=== PATIENT | male | born 1980 ===

== ENCOUNTER 2018-09-14 07:49 | Day surgery (SDC) | payer OTHER ==
[2018-09-12 12:07] VITALS: BMI 39.0
[2018-09-14] MEDS ORDERED: Lactated Ringer's 1,000 ML IV ONE (08:30)
--- NOTE | 2018-09-14 08:47 | CP.SDSHP ---
Same Day Surgery H & P - History Proposed Procedure: Left 2nd digit PIPJ arthroplasty Pre-Op Diagnosis: Left 2nd digit fionaertoe - Previous Medical/Surgical History Previous Surgical History: Denies - Allergies Allergies: Allergies codeine Allergy (Intermediate, Verified 12/26/16 08:12) SWELLING - Current Medications Current Medications: Truvada - Physical Exam Vital Signs: Vital Signs 09/14/18 08:15 Temperature 97.8 F Pulse Rate 67 Respiratory 20 Rate Blood Pressure 137/87 O2 Sat by Pulse 96 Oximetry Mental Status: Alert & Oriented x3 Neuro: WNL Heart: WNL Lungs: WNL GI: WNL - Impression Impression: Pt was seen and examined in SDS. Pt NPO status was confirmed. All pre-op testing and clearance in chart. Pt has exhausted all conservative treatment at this time and is opting for surgical intervention. Pt was explained procedure and post-operative course. All pt's questions were answered to satisfaction. No guarantees were made. Pt understands all risks, benefits and complications of procedure. Pt will follow-up with Dr. Mcdonald within 1 week of surgery Pt. Evaluated Today:Candidate for Anesthesia & Procedure: Yes - Date & Time Date: 09/14/18 Time: 08:47 Short Stay Discharge - Short Stay Discharge Admitting Diagnosis/Reason for Visit: M20.42 Disposition: HOME/ ROUTINE Referrals: Yaron Gongora MD [Primary Care Provider] - Additional Instructions (Diet, Activity): -Patient in good/stable condition for discharge home -Pt to resume medications per medical reconciliation -Resume regular diet -Please keep dressing clean, dry, & intact to surgical site -Use plastic bag over bandage for showering -Wear post op shoe at all times when ambulating -Call clinic if you see signs of infection (redness, swelling, malodor) -Please make an appointment to see Dr. Mcdonald in office/clinic within 1 week for post-op check Progress Note/Discharge Note with Instructions: - Patient evaluated bedside in recovery s/p 2nd digit arthroplasty - After surgical procedure patient in NAD - (+) Void, (+) Appetite - Capillary refill time <3s and NVS intact. - Patient denies complaints at this time. - Post operative instructions and plan of care explained to patient at length. - Patient. acknowledges verbal understanding. - Patient stable for DC per podiatric surgery
--- NOTE | 2018-09-14 08:50 | CP.PCM.PN ---
Subjective - Date & Time of Evaluation Date of Evaluation: 09/14/18 Time of Evaluation: 08:47 - Subjective Subjective: SDS Progress Note: Dr. Mcdonald 38 year old male patient, with no PMHx, seen and evaluated in [facility] for L 2nd digit arthroplasty. Patient states that his left 2nd toe has been bothering him for about 2-3 years, especially in tight shoes. Patient reports being NPO since 9pm last night. He states that he has had anesthesia before and denies any adverse reactions. Patient is aware of proposed procedure and post operative course. He denies N/V/F/SOB/CP. PMHx: denies Meds: Truvada ALL: Codeine Objective - Vital Signs/Intake and Output Vital Signs (last 24 hours): Temp Pulse Resp BP Pulse Ox 97.8 F 67 20 137/87 96 09/14/18 08:15 09/14/18 08:15 09/14/18 08:15 09/14/18 08:15 09/14/18 08:15 - Constitutional Appears: Non-toxic, No Acute Distress - Head Exam Head Exam: ATRAUMATIC, NORMOCEPHALIC - Extremities Exam Additional comments: LLE focused exam: Vascular: DP/PT 2/4, CFT < 3 seconds, TG warm to warm, no edema appreciated Ortho: MMT 5/5, tenderness to palpation of L 2nd digit, mildly rigid Hammertoe deformity of L 2nd digit, no pain with calf compression Neuro: Gross and protective sensation intact Derm: Erythema noted to dorsal aspect of 2nd digit. No open lesions, no clinical signs of infection - Neurological Exam Neurological Exam: Alert, Awake, Oriented x3 - Psychiatric Exam Psychiatric exam: Normal Affect, Normal Mood Assessment and Plan - Assessment and Plan (Free Text) Assessment: 38 year old male patient, with no PMHx, seen and evaluated in [facility] for L 2nd digit arthroplasty. Plan: Pt was seen and examined in [facility] Pt NPO status was confirmed All pre-op testing and clearance in chart Pt has exhausted all conservative treatment at this time and is opting for surgical intervention Pt was explained procedure and post-operative course All pt's questions were answered to satisfaction No guarantees were made Pt understands all risks, benefits and complications of procedure Pt will follow-up with Dr. Mcdonald within 1 week of surgery
[2018-09-14] MEDS ORDERED: Bupivacaine 0.25% Inj(30mL) IJ ONE (09:30)
[2018-09-14] MEDS ORDERED: Lidocaine 1% Inj (20ml) IJ ONE (09:30)
[2018-09-14] MEDS ORDERED: Lidocaine 1% Inj (20ml) ONE (10:58)
[2018-09-14] MEDS ORDERED: Bupivacaine HCl 0.5% PF (30 ml) Inj ONE (10:58)
[2018-09-14] MEDS ORDERED: ceFAZolin 1 GM in Sodium Chloride 0.9% 100 ML IVPB ONE (11:04)
[2018-09-14] MEDS ORDERED: Propofol 10 mg/ml Inj (20 ML) ONE (11:11)
[2018-09-14] MEDS ORDERED: Midazolam 2 MG/2 ML VIAL ONE (11:12)
[2018-09-14] MEDS ORDERED: Bupivacaine 0.5% Inj(30mL) IJ ONE (11:21)
[2018-09-14] MEDS ORDERED: Lidocaine 1% Inj (20ml) IV ONE (11:21)
[2018-09-14] MEDS ORDERED: Dexamethasone 4 mg/1 ml ONE (11:30)
[2018-09-14] MEDS ORDERED: Dexamethasone 4 mg/1 ml IM ONE (11:35)
--- NOTE | 2018-09-14 11:50 | PCM.SURG1 ---
Surgeon's Initial Post Op Note - Surgeon's Notes Surgeon: Dr. Mcdonald Hydrochloric Area Supervisor: Dr. Julianna Escalona PGY2 Type of Anesthesia: IV Sedation, Local Pre-Operative Diagnosis: L 2nd digit hammertoe deformity Operative Findings: See Dictation. I: 1cc dexamethasone. M: 5-0 Prolene, 3-0 Vicryl Post-Operative Diagnosis: Same Operation Performed: Left 2nd digit arthroplasty Specimen/Specimens Removed: none Estimated Blood Loss: EBL {In ML}: 5 Blood Products Given: N/A Drains Used: No Drains Post-Op Condition: Good Date of Surgery/Procedure: 09/14/18 Time of Surgery/Procedure: 11:49
--- NOTE | 2018-09-14 12:58 | RAD ---
Date of service: 09/14/2018 PROCEDURE: Left Foot Radiographs. HISTORY: s/p L 2nd digit arthroplasty COMPARISON: None. FINDINGS: BONES: Postsurgical changes of the 2nd digit at the level of the proximal interphalangeal joint. JOINTS: Lateral subluxation of the 2nd digit at the level of the proximal interphalangeal joint. SOFT TISSUES: Postsurgical changes. OTHER FINDINGS: None. IMPRESSION: Postsurgical changes involving the 2nd digit at the level of the proximal interphalangeal joint with worse lateral subluxation.
[2018-09-14 13:31] VITALS: RESP 20
[2018-09-14 14:06] VITALS: BP 138/81; PULSE 61; TEMP 97.7; O2SAT 95
--- NOTE | 2018-09-18 07:02 | OP ---
PROCEDURE DATE: 09/14/2018 PREOPERATIVE DIAGNOSIS: Left foot second digit hammer toe. POSTOPERATIVE DIAGNOSIS: Left foot second digit hammer toe. PROCEDURE PERFORMED: Left foot second digit proximal interphalangeal joint arthroplasty. SURGEON: Jayson Mcdonald DPM PROVIDER SCRIBE: Julianna Escalona DPM, PGY-2. ANESTHESIOLOGIST: Dr. Davis. TYPE OF ANESTHESIA: IV sedation with local. INDICATIONS: The patient is a 38-year-old male with the above diagnosis. The patient is being treated by Dr. Mcdonald in his office as an outpatient basis, where he has exhausted multiple forms of conservative treatments, which include, but are not limited to padding and strapping at home, physical therapy, stretching exercises. The patient seeks surgical intervention at this time. All risks, benefits, and possible complications of proposed procedure have been explained to the patient at greater length. The patient demonstrates verbal understanding and wishes to proceed with the procedure. All questions were answered. No guarantees were given nor implied. Consent was signed. NPO status was confirmed prior to bringing the patient to the operating room. OPERATIVE PROCEDURE: The patient was brought into the operating room and was placed on the operating room table in supine position. A well-padded ankle tourniquet was applied to the patient's left ankle. Once IV sedation was achieved, local injection of 7 mL of 1% lidocaine plain was introduced via local V-block type fashion to the patient's second digit of the left foot. Once the local anesthesia was achieved, the foot was then prepped and draped in the usual sterile manner, and the procedure began. PROCEDURE: Left foot second digit proximal interphalangeal joint arthroplasty: Attention was directed to the dorsal aspect of the second digit, superior to the level of the proximal interphalangeal joint of the second digit, approximately 1.5 cm linear longitudinal incision was created dorsal to the proximal interphalangeal joint of the left foot second digit. The incision was then deepened to the subcutaneous tissue down to the level of periosteum using sharp and blunt dissection. Care was taken to identify and retract all vital neurovascular structures. All bleeders were cauterized and ligated as necessary. At this time, a transverse tenotomy was performed at the level of the proximal interphalangeal joint, and the extensor tendon was retracted proximally and distally exposing the distal aspect of the proximal phalanx of the second digit. At this time, was performed from the proximal interphalangeal joint on the medial aspect and the lateral aspect, exposing and freeing head of the proximal phalanx into the operative field. At this time, utilizing a sagittal saw, the proximal phalanx was resected at the surgical neck and was passed off the operative field. At this time, surgical site was then irrigated with copious amount of sterile saline. A was utilized to smoothen the surgical site and the bony spicules from the proximal phalanx bone at the distal edge. The surgical site was then irrigated with copious amount of sterile saline again. At this time, utilizing a 3-0 Vicryl, tendon was reapproximated with the use of a horizontal mattress suture. The skin was then reapproximated using 5-0 nylon. At this time, the patient was given dexamethasone 4 mg injection into the operative site. Surgical site was then dressed with Betadine-soaked Adaptic, 4 x 4, Kerlix, and an Jevon bandage. POSTOPERATIVE CONDITION: The patient tolerated the anesthesia and the procedure well and was escorted to the recovery room with vital signs stable and neurovascular status intact to the left lower extremity. The patient will remain full weightbearing in a surgical shoe. The patient will follow up with Dr. Mcdonald in his office within one week. Julianna Escalona DPM Jayson Mcdonald DPM
== END 2018-09-14 14:45 | disposition home or self-care (01) ==
LOC: H.OPSURG 07:49
PROVIDERS: ATTEND Podiatrist Foot & Ankle Surgery
DX: M20.42 Other hammer toe(s) (acquired), left foot (principal); Z88.5 Allergy status to narcotic agent
CPT/HCPCS: 28285; 73630; 97161; G8978; G8979; G8980; J0690; J1100; J2001; J2250; J2704; J3010; J7030; J7120